=== PATIENT | male | born 1970 | race Hispanic/Latino ===

== ENCOUNTER 2017-04-01 07:21 | Emergency (ER) | payer BC ==
[2017-04-01 07:37] VITALS: RESP 18
[2017-04-01] MEDS ORDERED: Sodium Chloride 0.9% 1,000 ML IV STA (07:50)
--- NOTE | 2017-04-01 07:53 | ED PDOC ---
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 Denies dysuria, hematuria, vaginal discharge, nausea, vomiting , abdominal pain. Past Medical History Reviewed: Nursing Documentation, Vital Signs Vital Signs: Last Vital Signs Temp 100.9 F H 04/01/17 07:40 Pulse 109 H 04/01/17 07:41 Resp 18 04/01/17 07:34 BP 145/91 H 04/01/17 07:34 Pulse Ox 98 04/01/17 07:34 - Medical History PMH: No Chronic Diseases - Surgical History Surgical History: No Surg Hx - Family History Family History: States: Unknown Family Hx - Social History Current smoker - smoking cessation education provided: No Alcohol: None - Home Medications Home Medications: Ambulatory Orders Medication Instructions Recorded Doxycycline Hyclate 100 mg PO BID #19 capsule 04/01/17 Ibuprofen [Motrin] 600 mg PO Q6H PRN #20 tab 04/01/17 - Allergies Allergies/Adverse Reactions: Allergies Allergy/AdvReac Type Severity Reaction Status Date / Time No Known Allergies Allergy Verified 04/01/17 07:34 Review of Systems Constitutional: Positive for: Fever. Negative for: Weakness ENT: Negative for: Ear Pain, Throat Pain Cardiovascular: Negative for: Chest Pain, Palpitations Respiratory: Negative for: Cough, Shortness of Breath Gastrointestinal: Negative for: Nausea, Vomiting, Abdominal Pain, Diarrhea Genitourinary Male: Positive for: Scrotal Pain. Negative for: Dysuria, Frequency, Incontinence, Hematuria, Penile Discharge, Rash, Penile Pain Musculoskeletal: Negative for: Neck Pain, Back Pain Skin: Negative for: Rash, Lesions Neurological: Negative for: Weakness, Numbness, Headache, Dizziness Physical Exam - Reviewed Nursing Documentation Reviewed: Yes Vital Signs Reviewed: Yes - Physical Exam Appears: Positive for: Well, No Acute Distress Head Exam: Positive for: ATRAUMATIC, NORMAL INSPECTION Skin: Positive for: Normal Color, Warm, Dry Eye Exam: Positive for: Normal appearance, EOMI, PERRL Cardiovascular/Chest: Positive for: Tachycardia. Negative for: Irregularly Irregular Respiratory: Positive for: Normal Breath Sounds. Negative for: Rales, Rhonchi, Wheezing Gastrointestinal/Abdominal: Positive for: Normal Exam, Bowel Sounds, Soft. Negative for: Tenderness Male Genital Exam: Positive for: epididymal tenderness (L), erythema, scrotum tenderness (L), testicular tenderness (R). Negative for: bleeding, lesions, scrotum tenderness (R), testicular tenderness (L) Back: Positive for: Normal Inspection. Negative for: L CVA Tenderness, R CVA Tenderness Extremity: Positive for: Normal ROM - Laboratory Results Result Diagrams: 04/01/17 08:25 04/01/17 08:25 - ECG O2 Sat by Pulse Oximetry: 98 Medical Decision Making Medical Decision Makin yo with fever and L testicular pain. - labs - testicular ultrasound - IVF - Tylenol Accession No. : [id number] Patient Name / ID : JERRICA WHITESIDE / [id number] Exam Date : 04/01/2017 08:12:07 ( Approved ) Study Comment : Sex / Age : M / 47Y Creator : Rick Cunningham MD Dictator : Rick Cunningham MD Pay Agent : Optical Glass Inspector : Rick Cunningham MD Approver2 : Report Date : 04/01/2017 09:02:22 My Comment : HISTORY: L testicular pain, fever TECHNIQUE: Realtime sonography through the scrotum with color and doppler flow. COMPARISON: None Available. FINDINGS: RIGHT TESTICLE: Measures 5.2 x 3.1 x 2.4 cm. Normal echotexture and flow. No cystic or solid mass identified. RIGHT EPIDIDYMIS: Epididymal head measures 0.9 x 0.8 x 1.1 cm. Grossly unremarkable appearance with normal flow. LEFT TESTICLE: Measures 5.2 x 3.4 x 3.1 cm. Normal echotexture and flow. No cystic or solid mass identified. Testicular parenchyma is hyperemic on color Doppler imaging. LEFT EPIDIDYMIS: Epididymal head measures 1.0 x 1.3 x 1.5 cm. The epididymal body appears somewhat prominent and appears hyperemic on color ultrasound. No focal cystic or solid mass is identified. HYDROCELE: A mild left hydrocele is identified. VARICOCELE: A varicocele is identified the lateral left hemiscrotum. OTHER FINDINGS: None. IMPRESSION: Findings compatible with left epididymo-orchitis. No ultrasound evidence to suggest testicular torsion at this time. Mild left hydrocele. Left varicocele identified. Unremarkable right hemiscrotum. REPEAT HR: 85 Disposition - Clinical Impression Clinical Impression: Epididymo-orchitis - Disposition Referrals: Hua Crenshaw MD [Medical Doctor] - Disposition: Routine/Home Disposition Time: 11:33 Condition: IMPROVED Prescriptions: Doxycycline Hyclate 100 mg PO BID #19 capsule Ibuprofen [Motrin] 600 mg PO Q6H PRN #20 tab PRN Reason: Pain, Moderate (4-7) Instructions: Epididymo-orchitis (ED) Forms: [employer] (Slovenian)
[2017-04-01 08:13] LABS: VENOUS BLOOD GAS PCO2 37 mmHg (40-60); VENOUS BLOOD GAS PO2 50 mm/Hg (30-55); VENOUS BLOOD PH 7.48 (7.32-7.43)
[2017-04-01 08:38] LABS: BASO # 0.1 K/uL (0.0-0.2); BASO % 0.5 % (0.0-2.0); HEMOGLOBIN 14.6 g/dL (12.0-18.0); LYMPH # 1.4 K/uL (1.0-4.3); LYMPH % 12.6 % (20.0-40.0); MEAN CELL VOLUME 88.1 fl (80.0-94.0); MEAN CORPUSCULAR HEMOGLOBIN 29.9 pg (27.0-31.0); MEAN PLATELET VOLUME 8.5 fl (7.2-11.7); NEUT # 8.9 K/uL (1.8-7.0); NEUT % 77.9 % (50.0-75.0); RBC 4.89 Mil/uL (4.40-5.90); RED CELL DISTRIBUTION WIDTH 12.4 % (11.5-14.5); WHITE BLOOD COUNT 11.4 K/uL (4.8-10.8)
[2017-04-01 08:45] LABS: ALB/GLOB RATIO 1.2 (1.0-2.1); ALBUMIN 4.2 g/dL (3.5-5.0); ALT/SGPT 61 U/L (21-72); AST/SGOT 42 U/L (17-59); BLOOD UREA NITROGEN 15 mg/dl (9-20); CALCIUM 8.9 mg/dL (8.4-10.2); GFR AFRICAN-AMERICAN > 60; GFR NON-AFRICAN AMERICAN > 60
[2017-04-01 08:54] LABS: INR 1.2 (0.9-1.2); PARTIAL THROMBOPLASTIN TIME 31.2 Seconds (25.6-37.1); PROTHROMBIN TIME 13.6 Seconds (9.8-13.1)
--- NOTE | 2017-04-01 09:03 | US ---
HISTORY: L testicular pain, fever TECHNIQUE: Realtime sonography through the scrotum with color and doppler flow. COMPARISON: None Available. FINDINGS: RIGHT TESTICLE: Measures 5.2 x 3.1 x 2.4 cm. Normal echotexture and flow. No cystic or solid mass identified. RIGHT EPIDIDYMIS: Epididymal head measures 0.9 x 0.8 x 1.1 cm. Grossly unremarkable appearance with normal flow. LEFT TESTICLE: Measures 5.2 x 3.4 x 3.1 cm. Normal echotexture and flow. No cystic or solid mass identified. Testicular parenchyma is hyperemic on color Doppler imaging. LEFT EPIDIDYMIS: Epididymal head measures 1.0 x 1.3 x 1.5 cm. The epididymal body appears somewhat prominent and appears hyperemic on color ultrasound. No focal cystic or solid mass is identified. HYDROCELE: A mild left hydrocele is identified. VARICOCELE: A varicocele is identified the lateral left hemiscrotum. OTHER FINDINGS: None. IMPRESSION: Findings compatible with left epididymo-orchitis. No ultrasound evidence to suggest testicular torsion at this time. Mild left hydrocele. Left varicocele identified. Unremarkable right hemiscrotum.
[2017-04-01 09:17] VITALS: TEMP 99
[2017-04-01 10:08] LABS: URINE BILIRUBIN NEGATIVE (NEGATIVE); URINE BLOOD NEGATIVE (NEGATIVE); URINE CLARITY SLIGHTY-CLOUDY (Clear); URINE COLOR YELLOW (YELLOW); URINE GLUCOSE (UA) NEG (Normal); URINE LEUKOCYTE ESTERASE NEG Leu/uL (Negative); URINE NITRATE NEGATIVE (NEGATIVE); URINE PROTEIN NEGATIVE (NEGATIVE); URINE UROBILINOGEN 0.2-1.0 mg/dL (0.2-1.0)
[2017-04-01] MEDS ORDERED: cefTRIAXone (Rocephin) 1 gm Inj ONE (10:40)
[2017-04-01 12:06] VITALS: BP 131/74; PULSE 85
[2017-04-02 08:45] VITALS: O2SAT 98
== END 2017-04-01 12:06 | disposition home or self-care (01) ==
LOC: H.ER 07:21
DX: N45.3 Epididymo-orchitis (principal); I86.1 Scrotal varices
CPT/HCPCS: 80053; 81003; 82803; 85025; 85610; 85730; 87040; 87086; 87491; 87591; 93975; 96361; 96365; 99284; J0696; J7040